=== PATIENT | female | born 1995 | race Caucasian/White ===

== ENCOUNTER 2020-08-19 12:51 | Emergency (ER) | payer OTHER ==
[~2020-08-19 12:51] MED LIST: IBUPROFEN600 MG PO; MACROBID 100 M100 MG PO; NORCO 5-325 TA1 EACH PO
== END 2020-08-19 13:46 | disposition home or self-care (01) ==
LOC: ER1 12:51
DX: Z32.02 Encounter for pregnancy test, result negative (principal)
CPT/HCPCS: 81001; 84703; 99283

== ENCOUNTER → 2021-03-15 | Outpatient (CLI) | payer OTHER | LOC: LAB 10:40 | PROVIDERS: Physician Assistant | DX: E03.9 Hypothyroidism, unspecified (principal); N28.9 Disorder of kidney and ureter, unspecified | CPT/HCPCS: 36415; 80048; 84439; 84443 ==

== ENCOUNTER → 2021-03-22 | Outpatient (CLI) | payer OTHER | LOC: EDBD 14:27 → EXRD 14:27 | DX: N28.9 Disorder of kidney and ureter, unspecified (principal); N27.1 Small kidney, bilateral | CPT/HCPCS: 76775 ==

== ENCOUNTER → 2021-04-23 | Outpatient (CLI) | payer OTHER ==
[2021-04-23 15:14] LABS: HEMOGLOBIN 14.2 gm/dl (12.3-15.3); RED BLOOD COUNT 5.23 M/UL (4.00-5.10); WHITE BLOOD COUNT 14.4 K/UL (4.5-11.0)
== END ==
LOC: US 13:30
PROVIDERS: Internal Medicine Nephrology
DX: N17.9 Acute kidney failure, unspecified (principal); E03.9 Hypothyroidism, unspecified
CPT/HCPCS: 36415; 80053; 82570; 84156; 84443; 85027; 89050

== ENCOUNTER 2021-12-07 12:14 | Emergency (ER) | payer OTHER ==
[2021-12-07] MEDS ORDERED: PREDNISONE20 MG PO (14:19)
== END 2021-12-07 14:30 | disposition home or self-care (01) ==
LOC: ER1 12:14
DX: T78.40XA Allergy, unspecified, initial encounter (principal)
CPT/HCPCS: 96374; 99282; J2930

== ENCOUNTER → 2022-03-08 | Outpatient (CLI) | payer OTHER ==
[~2022-03-08] MED LIST changes: +PREDNISONE20 MG PO
[2022-03-09 07:09] LABS: HBSAG SCREEN Negative (Negative); HCV ANTIBODY <0.1 (0.0-0.9)
[2022-03-09 08:12] LABS: COMPLEMENT C3, SERUM 164 mg/dL (82-167); COMPLEMENT C4, SERUM 35 mg/dL (12-38)
[2022-03-09 11:12] LABS: CREATININE, URINE 100.1 mg/dL (Not Estab.)
[2022-03-09 14:12] LABS: ANTI-DSDNA ANTIBODIES 1 IU/mL (0-9)
[2022-03-11 15:10] LABS: A/G RATIO 0.2 (0.7-1.7); ALPHA-1-GLOBULIN 0.3 g/dL (0.0-0.4); ALPHA-2-GLOBULIN 1.3 g/dL (0.4-1.0); BETA GLOBULIN 1.2 g/dL (0.7-1.3); IMMUNOGLOBULIN A, QN, SERUM 236 mg/dL (87-352); IMMUNOGLOBULIN G, QN, SERUM 750 mg/dL (586-1602); IMMUNOGLOBULIN M, QN, SERUM 179 mg/dL (26-217); M-SPIKE Not Observed g/dL (Not Observed)
[2022-03-11 21:11] LABS: ANTIGLOMERULAR BM AB <0.2 units (0.0-0.9)
[2022-03-12 08:13] LABS: ANTIMYELOPEROXIDASE (MPO) ABS <0.2 units (0.0-0.9); ANTIPROTEINASE 3 (PR-3) ABS <0.2 units (0.0-0.9); ATYPICAL PANCA <1:20 titer (Neg:<1:20); CYTOPLASMIC (C-ANCA) <1:20 titer (Neg:<1:20); PERINUCLEAR (P-ANCA) <1:20 titer (Neg:<1:20)
== END ==
LOC: LAB 09:58
PROVIDERS: Internal Medicine Nephrology
DX: N17.9 Acute kidney failure, unspecified (principal)
CPT/HCPCS: 36415; 80053; 82043; 82570; 82784; 83520; 84155; 84156; 84165; 86038; 86160; 86162; 86225; 86256; 86334; 86803; 87340